=== PATIENT | female | born 1965 | race Caucasian/White ===

== ENCOUNTER → 2017-04-30 | Day surgery (SDC) | payer MEDICAID ==
[~2017-04-30] VITALS: Ht 157.5 cm; Wt 81.6 kg
[~2017-04-30] MED LIST: ACETAMINOPHEN &1 TA1 PO; AUGMENTIN 875 M1 TAB PO; BACLOFEN 10MG T10 MG PO; CIPRO 500MG TA500 MG PO; DILAUDID2 MG IT; KLONOPIN 0.5MG0.5 MG NG; KLONOPIN 0.5MG0.5 MG PO; LEVOTHYROXINE0.05 MG PO; LORTAB 5/500 501 TAB PO; LORTAB 500 MG-11 TAB PO; MOTRIN800 MG PO; MUCINEX D 600 M1 TER PO; NEURONTIN 100100 MG PO; OXYCODONE HYDRO10 M2 PO; OXYCONTIN 10MG10 MG PO; PERCOCET 10 MG1 EACH PO; PHENAZOPYRIDIN200 MG PO; PHENERGAN 25MG.25 M1 PO; ROBAXIN-750750 MG PO; SOMA350 MG PO; TORADOL10 MG PO; ZANAFLEX4 MG PO
[2017-04-30 15:26] VITALS: BP 146/91
[2017-04-30 15:38] VITALS: BP 146/91
[2017-04-30 15:40] VITALS: BP 152/96
--- NOTE | 2017-04-30 15:51 | Procedure Note ---
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 Cervical postlaminectomy syndrome. Post-procedure diagnosis: Same. Indications for procedure: Very pleasant 51-year-old white female that we are managing with intrathecal pain pump. Her pump contains hydromorphone 1 mg/mL at 0.4 mg per day. Patient reports today she is having increased pain with activity. However, her pain is 75 percent better than before the pump. She complains of lumbar back pain. Also, cervical neck pain with some radicular symptoms at times. She presents today for pain pump refill. We won't increase her rate to 0.45 mg per day. We will increase her PTM dose 0.02 milligrams to every 6 hours. Objective: Patient's awake alert oriented 3. In no acute distress. Flexion- extension cervical lumbar spine somewhat guarded secondary to pain. Deep tendon reflexes upper lower extremities normal. Motor strength upper and lower extremities normal. There is no gross sensory deficit. Gait is normal. Positive straight leg raise test 30 degrees bilateral. Procedure detail: Details of the procedure were explained to the patient. The patient was taken to the procedure room and placed in the sitting position. The area over the intrathecal pain pump was cleansed using chlorhexidine as a cleansing solution. The pump was accessed with ease using a 22-gauge needle from the refill kit. 9.6 mL of solution was withdrawn and discarded appropriately. The pump was then filled with 20 mL of hydromorphone 20 mg/mL. Pump was interrogated. The rate was increased to 0.45 mg per day. The PTC dose was unchanged. It remains 0.02 mg. However, we increased the PTC to every 6 hours. Plan and disposition: Patient was reevaluated 10 minutes post procedure. She is doing very well. She' ll return to see us at her next refill date. at [id number]
[2017-04-30 16:24] VITALS: BP 147/91
[2017-04-30 17:15] LABS: AMPHETAMINES/METAMPHETAMINES NEGATIVE ng/mL (<1000)
== END ==
LOC: LAB 15:01 → PM 15:01
PROVIDERS: Nurse Anesthetist, Certified Registered
DX: M50.10 Cervical disc disorder with radiculopathy, unspecified cervical region (principal); M96.1 Postlaminectomy syndrome, not elsewhere classified

== ENCOUNTER 2017-05-28 12:39 | Day surgery (SDC) | payer MEDICAID ==
[~2017-05-28] VITALS: Ht 157.5 cm; Wt 83.9 kg
[2017-05-28 13:23] VITALS: BP 123/75
[2017-05-28 13:38] VITALS: BP 123/75
[2017-05-28 13:39] VITALS: BP 131/86
[2017-05-28 13:49] VITALS: BP 121/86
--- NOTE | 2017-05-28 13:49 | Procedure Note ---
Procedure detail Date of procedure: 05/28/17 Anesthesiologist: Ck Burgess Complications: None Pre-procedure diagnosis: Degenerative disc disease cervical spine cervical recopy symptoms. Cervical postlaminectomy syndrome. Post-procedure diagnosis: Same. Indications for procedure: Very pleasant 51-year-old white female that returns [facility] today for intrathecal pain pump refill. Patient currently has hydromorphone 1 mg/mL at 0.45 mg per day. Patient is doing very well with her current settings. However, we will increase concentration of the hydromorphone today to 5 mg/mL. Procedure detail: Details of procedures pain to the patient. The patient taken to procedure room placed in a sitting position. The area over the LEFT lower lumbar was cleansed using chlorhexidine as a cleansing solution. The pump was accessed with ease using a 22-gauge needle from the refill kit. 6.1 mL of solution was withdrawn and discarded appropriate. The pump was then filled with 20 mL of hydromorphone 5 mg/mL. The pump was interrogated and the rate was continued at 0.45 mg per day. PTC was unable. Plan and disposition: Patient was discharged 10 minutes post procedure. She's doing very well. She'll call us if she has any issues. at [id number]
== END 2017-05-28 13:51 | disposition home or self-care (01) ==
LOC: PM 12:39
DX: M50.30 Other cervical disc degeneration, unspecified cervical region (principal)